=== PATIENT | female | born 1955 | race Caucasian/White ===

== ENCOUNTER → 2017-04-08 | Outpatient (CLI) | payer BC ==
[~2017-04-08] MED LIST: ASPIRIN PO; CALCIUM PO; CERTAGEN PO; LODINE PO
--- NOTE | ~2017-04-08 | US5 ---
[facility] A Service of [facility] & [facility] RADIOLOGY TEXT RESULTS PATIENT: CHRISTOPH REGAN LOCATION: [facility] : 51 UNIT #: [id number] AGE: [address]: Dominique Cotton APRN SEX: F ORDER DR: [id number] [facility] [address] [place], [place] [address] [id number] O MR#: [id number] Acc #: [id number] NAME: CHRISTOPH REGAN : 1955 SEX: F STUDY DATE/TIME: 04/08/2017 7:51 UNIT: [facility] ROOM: STUDY DESCRIPTION: US Abdominal Complete Attending Physician: Dominique Cotton A.P.R.N. Referring Physician: Dominique Cotton A.P.R.N. Ordering Physician: Dominique Cotton A.P.R.N. Primary Care Physician: Dominique Cotton A.P.R.N. MEDICAL IMAGING REPORT This report is preliminary unless electronic signature is present EXAM Abdominal ultrasound complete 04/08/2017 HISTORY Epigastric abdominal pain radiating to the back and arms for several weeks. No known injury, abdominal discomfort and chest discomfort. FINDINGS There is a 3 cm cyst in the right hepatic lobe. The liver is otherwise homogeneous in echotexture and demonstrates no solid mass lesions. The intra- and extrahepatic bile ducts are not dilated. The gallbladder is normal with no evidence of cholelithiasis, wall thickening. or pericholecystic fluid. The common duct measures 3 mm. The pancreas and spleen are normal. The spleen measures 9.3 cm in greatest diameter. The visualized portions of the abdominal aorta and inferior vena cava are within normal limits. The kidneys are normal bilaterally. IMPRESSION A 3 cm cyst right hepatic lobe. Otherwise, negative abdominal ultrasound. Dictated by... Shaggy Barcenas M.D. THIS IS AN ELECTRONICALLY VERIFIED REPORT Shaggy Barcenas M.D. at 04/09/2017 7:13 AM BRIDGET/bobby TD: 04/08/2017 09:42 JOB #: [id number] MEDICAL IMAGING REPORT Page 1 of 1 COPY
== END | disposition home or self-care (01) ==
LOC: CGUS 07:09
DX: R10.9 Unspecified abdominal pain (principal); R07.89 Other chest pain; K76.89 Other specified diseases of liver
CPT/HCPCS: 76700